=== PATIENT | male | born 1965 | race African-American/Black ===

== ENCOUNTER → 2017-06-27 | Day surgery (SDC) | payer BC ==
[~2017-06-27] MED LIST: LIDOCAINE 2% PF Vial for OR 5 ML VIAL.; PROPOFOL 40 ML IV
[2017-06-27] MEDS: IV RINGERS,LACTATED 1000ML 1,000 ML IV (08:56)
== END ==
LOC: ENDOS 08:10
DX: K64.0 First degree hemorrhoids (principal); K29.50 Unspecified chronic gastritis without bleeding; K21.9 Gastro-esophageal reflux disease without esophagitis; I10 Essential (primary) hypertension; Z86.73 Personal history of transient ischemic attack (TIA), and cerebral infarction without residual deficits; Z82.49 Family history of ischemic heart disease and other diseases of the circulatory system; Z83.3 Family history of diabetes mellitus
CPT/HCPCS: 45378; J2704

== ENCOUNTER → 2021-07-11 | Outpatient (CLI) | payer BC ==
[2017-06-27 10:18] VITALS: BP 122/68
[~2021-07-11] MED LIST changes: +AMLO-187 PO; -LIDOCAINE 2% PF Vial for OR 5 ML VIAL.; +LISI20TA18 PO; -PROPOFOL 40 ML IV
--- NOTE | 2021-07-11 13:24 | KCIC ---
Examination: MRI of the right knee without contrast HISTORY: History of medial right knee pain COMPARISON: None TECHNIQUE: Multiplanar, multisequence MR imaging of the right knee without contrast FINDINGS: The anterior cruciate ligament, posterior cruciate ligament appears intact. Mild increased T2 signal identified at the junction of the anterior horn and body of medial meniscus likely tear. The lateral meniscus a ppears intact. The medial collateral ligament appears intact. The lateral collateral ligamentous comp mariela including the fibular collateral ligament, biceps femoris tendon and popliteus tendon appears int act. The extensor mechanism is intact. Small knee joint effusion. There is deep fissuring of cartilage dylon ntified in the lateral patellofemoral compartments. The medial, lateral retinaculum appears intact. Mild joint space loss medial, lateral, patellofemoral compartments. Mild increased T2 signal identifi ed in the Hoffa's fat pad deep to the infrapatellar tendon. IMPRESSION: 1. Mild increased T2 signal identified at the junction of the anterior horn and body of the medial m eniscus likely tear. 2. Grade II chondromalacia lateral patellofemoral compartments. 3. Small knee joint effusion. 4. Mild increased T2 signal identified in the Hoffa's fat pad deep to the infrapatellar tendon likel y edema secondary to impingement. Electronically signed by: Ambrose Richardson MD (07/11/2021 1:21 PM) [id number]
== END ==
LOC: KCIC MRI 09:28
PROVIDERS: ATTEND Nurse Practitioner
DX: M94.261 Chondromalacia, right knee (principal); M25.461 Effusion, right knee; M25.861 Other specified joint disorders, right knee
CPT/HCPCS: 73721